=== PATIENT | female | born 1970 | race Native Hawaiian/Other Pacific Islander ===

== ENCOUNTER 2019-03-23 16:08 | Emergency (ER) | payer OTHER ==
[~2019-03-23] VITALS: Ht 165.1 cm; Wt 59.0 kg
[2019-03-23 16:15] VITALS: TEMP 98.1
[2019-03-23 17:24] VITALS: BP 142/82
== END 2019-03-23 17:25 | disposition home or self-care (01) ==
LOC: ED 16:08
DX: T63.301A Toxic effect of unspecified spider venom, accidental (unintentional), initial encounter (principal); M79.674 Pain in right toe(s)
CPT/HCPCS: 96372; 99283; J0696; J2930

== ENCOUNTER 2020-02-06 17:36 | Emergency (ER) | payer OTHER | END 2020-02-06 19:15 | disposition home or self-care (01) | LOC: ED 17:36 | DX: N63.0 Unspecified lump in unspecified breast (principal); R22.30 Localized swelling, mass and lump, unspecified upper limb | CPT/HCPCS: 99281 ==

== ENCOUNTER 2022-01-07 13:06 | Emergency (ER) | payer OTHER ==
[~2022-01-07] VITALS: Ht 165.1 cm; Wt 68.0 kg
[2022-01-07 13:15] VITALS: TEMP 98
[2022-01-07 13:20] VITALS: BP 151/87
== END 2022-01-07 13:30 | disposition home or self-care (01) ==
LOC: ED 13:06
DX: Z53.21 Procedure and treatment not carried out due to patient leaving prior to being seen by health care provider (principal); I10 Essential (primary) hypertension; F17.210 Nicotine dependence, cigarettes, uncomplicated
CPT/HCPCS: 99281